=== PATIENT | male | born 1950 | race Caucasian/White ===

== ENCOUNTER → 2022-04-13 | Outpatient (CLI) | payer OTHER ==
[~2022-04-13] MED LIST: HYDACE5 PO; LEVSOD100; NAPR550 PO
[2022-04-13 13:15] LABS: Anion Gap 6 mmol/L (6-16); Blood Urea Nitrogen 34 mg/dL (8-24); Bun/Creatinine Ratio 28.3 (12.0-20.0); CHOL/HDL RATIO 8.1; CO2, Blood 28 mmol/L (21-32); Calcium, Blood 9.8 mg/dL (8.5-10.1); Chloride, Blood 101 mmol/L (98-108); Cholesterol 314 mg/dL (50-200); Glomerular Filtration Rate 65 (60-); Glucose, Blood 116 mg/dL (70-99); HDL Cholesterol 39 mg/dL (>39); Low Density Lipoprotein Chol 233 mg/dL (0-110); Potassium, Blood 3.8 mmol/L (3.5-5.5); Sodium, Blood 135 mmol/L (136-145); Thyroid Stimulating Hormone 0.211 uIU/mL (0.360-4.800); Triglycerides 209 mg/dL (30-160); Very Low Density Lipoprot Chol 41 mg/dL (6-32)
== END | disposition home or self-care (01) ==
LOC: LAB SHORT 09:27
PROVIDERS: Internal Medicine Cardiovascular Disease
DX: E78.5 Hyperlipidemia, unspecified (principal); I10 Essential (primary) hypertension; R94.30 Abnormal result of cardiovascular function study, unspecified; R07.9 Chest pain, unspecified
CPT/HCPCS: 36415; 80048; 80061; 84443

== ENCOUNTER 2022-06-20 07:31 | Day surgery (SDC) | payer OTHER ==
[~2022-06-20] VITALS: Ht 177.8 cm; Wt 96.0 kg
[~2022-06-20 07:31] MED LIST changes: +DILT180 PO; +ETOD400 PO; +FLUT.05NI; +LISI20 PO; +REPATHA SU140 MG/1 M SC; +Triamcinolone A15 G3 TOP
[2022-06-20] MEDS ORDERED: CHLO25B PO (08:04)
--- NOTE | 2022-06-20 14:04 | NUR ---
PT RETURNED TO RECOVERY ROOM IN [facility]. RIGHT RADIAL TR BAND SITE SOFT NON-TENDER WITH NO HEMATOMA, NO PULSATILE BLEEDING AND RIGHT WRIST BOARD IN PLACE. PT DENIES CHEST PAIN. CALL LIGHT IN REACH. PT'S FRIENDS IN ROOM.
--- NOTE | 2022-06-20 14:52 | NUR ---
FULL REPORT PROVIDED YOCASTA DUMONT TO ASSUME CARE OF PT IN RECOVERY ROOM.
[2022-06-20] MEDS ORDERED: TICA90TA PO (15:04)
[2022-06-20] MEDS ORDERED: EZET10 PO (15:05)
--- NOTE | 2022-06-20 15:12 | NUR ---
1500 DR GOFF AT THE BEDSIDE, SPOKE WITH THE PATIENT AND CHECKED THE RIGHT RADIAL SITE. VIEWED THE EKG. NEW SCRIPTS SENT TO THE PHARMACY, [facility] REVEIWED HOME MED RECONCILATION WITH THE PATIENT.
[2022-06-20] MEDS ORDERED: ASPI81CH PO (15:18)
--- NOTE | 2022-06-20 15:46 | NUR ---
1545 PATIENT UP TO THE [facility].
--- NOTE | 2022-06-20 15:46 | NUR ---
1530 BEGAN RELEASING AIR FROM THE TR BAND, NO BLEEDING NOTED. NO HEMATOMA NOTED.
--- NOTE | 2022-06-20 16:49 | NUR ---
1645 ATTEMPTED TO REMOVE THE TR BAND AND BLEEDING OCCURRED. REPLACED THE TR BAND AND ADDEDD 5 ML OF AIR. NO FURTHER BLEEDING NOTED.
--- NOTE | 2022-06-20 16:49 | NUR ---
PATIENT UP TO THE [facility]ROM, OFF THE MONITOR.
--- NOTE | 2022-06-20 17:34 | NUR ---
CLEARED LABS WITH DR. GOFF. TR BAND REMOVED AND SITE CLEANED AND COLTH DOT PLACED. NO HEMATOMA, NO BLEEDING NOTED. PIV REMOVED AND CATH TIP INTACT AND PRESSURE DRESSING APPLIED TO THE LEFT AC. 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 WITH THE PATIENT. PATIENT DISCHARGED HOME AT 1725
== END 2022-06-20 17:55 | disposition home or self-care (01) ==
LOC: MHTC 07:31
DX: R07.89 Other chest pain (principal); R94.39 Abnormal result of other cardiovascular function study; Z88.0 Allergy status to penicillin; I10 Essential (primary) hypertension; E78.5 Hyperlipidemia, unspecified; E03.9 Hypothyroidism, unspecified; Z88.8 Allergy status to other drugs, medicaments and biological substances
CPT/HCPCS: 76937; 82550; 84484; 85347; 92920; 92921; 92978; 93005; 93010; 93458; 93571; 99152; 99153; A9270; C1725; C1753; C1769; C1874; C1887; C1894; C9600; J0153; J1644; J2250; J3010; J7030; J7050; Q9967

== ENCOUNTER 2023-11-19 11:48 | Emergency (ER) | payer OTHER ==
[~2023-11-19] VITALS: Ht 177.8 cm; Wt 80.7 kg
[~2023-11-19 11:48] MED LIST changes: +ASPI81CH PO; +CHLO25B PO; +EZET10 PO; -LEVSOD100; +LEVSOD100 PO; +TICA90TA PO
[2023-11-19 12:19] LABS: BASOPHILS ABSOLUTE AUTO 0.04 K/mm3 (0.00-0.23); BASOPHILS PERCENT AUTO 1 % (0-2); EOSINOPHILS ABSOLUTE AUTO 0.05 K/mm3 (0.00-0.68); EOSINOPHILS PERCENT AUTO 1 % (0-6); Hematocrit 42.6 % (37.0-53.0); IMMATURE GRAN ABSOLUTE AUTO 0.12 K/mm3 (0.00-0.10); IMMATURE GRAN PERCENT AUTO 1 % (0-1); LYMPHOCYTES PERCENT AUTO 23 % (21-46); MONOCYTES ABSOLUTE AUTO 0.86 K/mm3 (0.16-1.47); MONOCYTES PERCENT AUTO 10 % (4-13); Mean Corpuscular HGB 31.1 pg (26.0-34.0); Mean Corpuscular HGB Conc 35.2 g/dL (31.5-36.5); Mean Corpuscular Volume 88 fL (80-100); Mean Platelet Volume 9.4 fL (9.1-12.4); NEUTROPHILS ABSOLUTE AUTO 5.37 K/mm3 (1.96-9.15); NEUTROPHILS PERCENT AUTO 64 % (41-73); Platelet Count 376 K/mm3 (150-400); RDW Coefficient Variation 11.6 % (11.7-14.2); RDW Standard Deviation 37.4 fL (35.1-46.3); Red Blood Cell Count 4.83 M/mm3 (4.30-5.90); White Blood Cell Count 8.34 K/mm3 (4.00-11.30)
[2023-11-19 12:38] LABS: Albumin, Blood 3.5 g/dL (3.4-5.0); Albumin/Globulin Ratio 0.8 (0.8-1.8); Bilirubin, Total 1.2 mg/dL (0.1-1.0); Calcium, Blood 9.5 mg/dL (8.5-10.1); Creatinine, Blood 1.27 mg/dL (0.60-1.20); Globulin, Blood 4.6 g/dL (2.2-4.0); Potassium, Blood 3.9 mmol/L (3.5-5.5); Total Protein, Blood 8.1 g/dL (6.4-8.2)
[2023-11-19] MEDS ORDERED: SILD50TA PO (14:18)
[2023-11-19] MEDS ORDERED: [UNRECOGNIZED DRUG - OTHER] PO (14:19)
[2023-11-19] MEDS ORDERED: Cefpodoxime Proxetil 200 MG Tab PO ONE (14:50)
[2023-11-19] MEDS ORDERED: Azithromycin 250 MG Tab PO ONE (14:50)
[2023-11-19] MEDS ORDERED: CEFP200 PO (15:07)
[2023-11-19] MEDS ORDERED: AZIT250 PO (15:07)
[2023-11-19 15:46] VITALS: BP 139/88
== END 2023-11-19 15:49 | disposition home or self-care (01) ==
LOC: ER 11:48
PROVIDERS: Student in an Organized Health Care Education/Training Program
DX: J18.9 Pneumonia, unspecified organism (principal); E03.9 Hypothyroidism, unspecified; E78.5 Hyperlipidemia, unspecified; I25.2 Old myocardial infarction; I10 Essential (primary) hypertension; Z86.79 Personal history of other diseases of the circulatory system; Z79.82 Long term (current) use of aspirin; Z79.51 Long term (current) use of inhaled steroids; Z79.899 Other long term (current) drug therapy; Z88.0 Allergy status to penicillin; Z88.8 Allergy status to other drugs, medicaments and biological substances
CPT/HCPCS: 71046; 80053; 84484; 85025; 93005; 93010; 99285-25; A9270

== ENCOUNTER 2025-04-13 08:15 | Emergency (ER) | payer OTHER ==
[~2025-04-13] VITALS: Ht 177.8 cm; Wt 86.2 kg
[~2025-04-13 08:15] MED LIST changes: +AZIT250 PO; +CEFP200 PO; +SILD50TA PO; +[UNRECOGNIZED DRUG - OTHER] PO
[2025-04-13 09:12] LABS: BASOPHILS ABSOLUTE AUTO 0.06 K/mm3 (0.00-0.23); BASOPHILS PERCENT AUTO 1 % (0-2); EOSINOPHILS ABSOLUTE AUTO 0.11 K/mm3 (0.00-0.68); EOSINOPHILS PERCENT AUTO 2 % (0-6); Hematocrit 44.6 % (37.0-53.0); Hemoglobin 15.7 g/dL (13.5-17.5); IMMATURE GRAN ABSOLUTE AUTO 0.02 K/mm3 (0.00-0.10); IMMATURE GRAN PERCENT AUTO 0 % (0-1); LYMPHOCYTES ABSOLUTE AUTO 2.80 K/mm3 (0.84-5.20); LYMPHOCYTES PERCENT AUTO 40 % (21-46); MONOCYTES ABSOLUTE AUTO 0.49 K/mm3 (0.16-1.47); MONOCYTES PERCENT AUTO 7 % (4-13); Mean Corpuscular HGB Conc 35.2 g/dL (31.5-36.5); Mean Corpuscular Volume 89 fL (80-100); NEUTROPHILS ABSOLUTE AUTO 3.54 K/mm3 (1.96-9.15); NEUTROPHILS PERCENT AUTO 50 % (41-73); NRBC ABSOLUTE 0.00 K/mm3 (0.00-0.02); NRBC Auto 0.0 /100 WBC (0.0-0.2); Platelet Count 254 K/mm3 (150-400); RDW Coefficient Variation 12.0 % (11.7-14.2); RDW Standard Deviation 39.2 fL (35.1-46.3)
[2025-04-13 09:37] LABS: Alanine Aminotransfer (ALT/SGP 15.0 U/L (12-78); Albumin, Blood 3.7 g/dL (3.4-5.0); Albumin/Globulin Ratio 1.0 (0.8-1.8); Anion Gap 10.0 mmol/L (3-11); Aspartate Aminotrans (AST/SGOT 19.0 U/L (12-37); Bilirubin, Total 0.6 mg/dL (0.1-1.0); Blood Urea Nitrogen 19.0 mg/dL (8-24); CO2, Blood 25.0 mmol/L (21-32); Calcium, Blood 9.1 mg/dL (8.5-10.1); Chloride, Blood 103.0 mmol/L (98-108); Creatinine, Blood 1.01 mg/dL (0.60-1.20); Globulin, Blood 3.7 g/dL (2.2-4.0); Glucose, Blood 114.0 mg/dL (70-99); Potassium, Blood 3.8 mmol/L (3.5-5.5); Sodium, Blood 134.0 mmol/L (136-145); Total Protein, Blood 7.4 g/dL (6.4-8.2)
[2025-04-13] MEDS ORDERED: LISI20 PO (10:42)
[2025-04-13] MEDS ORDERED: Aspir 8181 MG PO (10:42)
[2025-04-13] MEDS ORDERED: SILD50TA PO (10:42)
[2025-04-13 11:14] LABS: Source, Urine Clean Catch
[2025-04-13 11:19] LABS: Bilirubin, Urine Neg (Neg); Color, Urine Yellow (P-Yellow); Glucose Qualitative, Urine Neg (Neg); Ketones, Urine Neg (Neg); Leukocyte Esterase, Urine Neg (Neg); Protein, Urine 1+ (Neg); Specific Gravity, Urine 1.015 (1.003-1.022); Urobilinogen, Urine NORM (Normal)
[2025-04-13 12:38] VITALS: BP 132/78
== END 2025-04-13 12:45 | disposition home or self-care (01) ==
LOC: ER 08:15
PROVIDERS: Student in an Organized Health Care Education/Training Program
DX: M54.50 Low back pain, unspecified (principal); R10.A1 Flank pain, right side; R10.813 Right lower quadrant abdominal tenderness; K57.30 Diverticulosis of large intestine without perforation or abscess without bleeding; K40.90 Unilateral inguinal hernia, without obstruction or gangrene, not specified as recurrent; N40.0 Benign prostatic hyperplasia without lower urinary tract symptoms; E03.9 Hypothyroidism, unspecified; E78.5 Hyperlipidemia, unspecified; I10 Essential (primary) hypertension; I25.2 Old myocardial infarction; Z88.0 Allergy status to penicillin; Z88.8 Allergy status to other drugs, medicaments and biological substances; Z79.890 Hormone replacement therapy; Z79.82 Long term (current) use of aspirin; Z79.899 Other long term (current) drug therapy
CPT/HCPCS: 74177; 80053; 85025; Q9967